=== PATIENT | female | born 1995 | race Hispanic/Latino ===

== ENCOUNTER 2019-05-02 14:50 | Emergency (ER) | payer OTHER | END 2019-05-02 15:59 | disposition home or self-care (01) | LOC: EDH 14:50 | DX: H10.9 Unspecified conjunctivitis (principal) ==

== ENCOUNTER 2019-12-09 13:09 | Inpatient (IN) | payer OTHER ==
[~2019-12-09] VITALS: Ht 175.3 cm; Wt 133.8 kg
[2019-12-09 14:30] LABS: APPEARANCE,URINE Clear (CLEAR); BILIRUBIN,URINE Negative (NEGATIVE); COLOR,URINE Yellow (YELLOW); GLUCOSE, URINE (UA) Negative (NEGATIVE); KETONES,URINE Negative (NEGATIVE); LEUKOCYTE ESTERASE ,URINE Negative (NEGATIVE); NITRATE,URINE Negative (NEGATIVE); OCCULT BLOOD,URINE Trace (NEGATIVE); PROTEIN,URINE Negative (NEGATIVE)
[2019-12-09 14:48] LABS: BASOPHILS % (AUTO) 0.2 % (0.0-5.0); EOSINOPHILS % (AUTO) 1.9 % (0.0-8.0); HEMATOCRIT 39.8 % (36-48); LYMPHOCYTES % (AUTO) 31.4 % (21.0-51.0); MEAN CORPUSCULAR HEMOGLOBIN 27.7 pg (27.0-33.0); MEAN CORPUSCULAR HGB CONC 31.9 g/dL (32.0-36.0); MEAN CORPUSCULAR VOLUME 86.9 fL (79-99); MONOCYTES % (AUTO) 5.5 % (3.0-13.0); NEUTROPHILS % (AUTO) 60.7 % (40.0-77.0); PLATELET COUNT (AUTO) 313 K/uL (130-400); RED BLOOD CELL COUNT(AUTO) 4.58 MIL/uL (4.00-5.50); RED CELL DISTRIBUTION WIDTH 13.4 % (11.0-15.5); WHITE BLOOD COUNT (AUTO) 9.1 K/uL (4.8-10.8)
[2019-12-09 14:53] LABS: RBC,URINE 0-1 /HPF (0-1)
[2019-12-09 14:54] LABS: BACTERIA,URINE Few /HPF (None Seen); WBC,URINE 0-1 /HPF (0-1)
[2019-12-09] MEDS ORDERED: SODIUM CHLORIDE 0.9% 1000ML 1,000 ML IV ONE (14:58)
[2019-12-09] MEDS ORDERED: ONDANSETRON HCL 4 MG/2 ML VIAL ONE (14:58)
[2019-12-09] MEDS ORDERED: MORPHINE SULFATE 4 MG/1ML SYG ONE (14:58)
[2019-12-09 15:04] LABS: CREATININE 0.8 mg/dL (0.5-1.5); POTASSIUM 3.7 mmol/L (3.5-5.1)
[2019-12-09 15:16] LABS: ALBUMIN 3.3 g/dL (3.5-5.0); BILIRUBIN,TOTAL 0.2 mg/dL (0.2-1.0); TOTAL PROTEIN, SERUM 8.4 g/dL (6.0-8.3)
[2019-12-09] MEDS ORDERED: KETOROLAC TROMETHAMINE 15MG/ML ONE (16:01)
--- NOTE | 2019-12-09 18:20 | NUR ---
ANDRE LARSON CALLED AND VOICE MAIL LEFT TO INFORM THAT PATIENT HAVING TEMP. WILL WAIT FOR CALLBACK. PATIENT GIVEN COLD PACKS AND COOL WASH CLOTHES USED TO DAB ON BODY. ASSISTED PATIENT IN DABBING BILATERAL UPPER/LOWER EXTREMITIES. ADVISED PATIENT TO REMAIN UNCOVERED AND TO DRINK PLENTY OF WATER. PATIENT VOICED UNDERSTANDING.
[2019-12-09 18:23] VITALS: BP 133/90
[2019-12-09] MEDS: LACTATED RINGERS 1000ML 1,000 ML IV SCH (18:58)
[2019-12-09 19:51] VITALS: BP 100/40
[2019-12-09] MEDS: PROMETHAZINE HCL 25 MG/ML 1ML AMPULE IM PRN (21:29)
[2019-12-09] MEDS: MEPERIDINE-PF 25 MG/ML SYG IV PRN (21:29)
[2019-12-10] VITALS (21 sets, daily range): BP systolic 94–145; BP diastolic 60–93
[2019-12-10] MEDS: PROMETHAZINE HCL 25 MG/ML 1ML AMPULE IM PRN ×3 (01:29→12:50)
[2019-12-10] MEDS: MEPERIDINE-PF 25 MG/ML SYG IV PRN (01:29)
[2019-12-10] MEDS: LACTATED RINGERS 1000ML 1,000 ML IV SCH ×3 (02:39→19:05)
--- NOTE | 2019-12-10 05:00 | NUR ---
Dr Gillespie called, clarifying order for Demerol 15mg q 2; changed dosage to Demerol 50mg IVP q 2 hours prn pain. Jose M Cruz RN notified of order clarification.
[2019-12-10] MEDS ORDERED: MEPERIDINE-PF 50 MG/ML SYG IVP PRN (05:15)
[2019-12-10 06:31] LABS: HEMATOCRIT 37.3 % (36-48); MEAN CORPUSCULAR HEMOGLOBIN 28.2 pg (27.0-33.0); MEAN CORPUSCULAR HGB CONC 32.2 g/dL (32.0-36.0); MEAN CORPUSCULAR VOLUME 87.8 fL (79-99); PLATELET COUNT (AUTO) 282 K/uL (130-400); RED BLOOD CELL COUNT(AUTO) 4.25 MIL/uL (4.00-5.50); RED CELL DISTRIBUTION WIDTH 13.6 % (11.0-15.5); WHITE BLOOD COUNT (AUTO) 9.6 K/uL (4.8-10.8)
[2019-12-10 06:33] LABS: CREATININE 0.8 mg/dL (0.5-1.5); POTASSIUM 3.5 mmol/L (3.5-5.1)
--- NOTE | 2019-12-10 07:35 | NUR ---
PATIENT ASSESSED AND WAS MADE AWARE THAT DR. PAN WOULD BE NOTIFIED OF HIS PATIENT BEING ADMITTED TO HOSPITAL. PATIENT HAS STABLE VITAL SIGNS AND HAS REMAINED AFEBRILE.
[2019-12-10] MEDS: MEPERIDINE-PF 50 MG/ML SYG IM PRN ×2 (08:29→12:53)
--- NOTE | 2019-12-10 12:30 | NUR ---
C/O HAVING PAIN AND WAS MEDICATED WITH DEMEROL 50 AND PHENERGAN 25MGS IM. PATIENT TOLERATED INJECTION WELL.
--- NOTE | 2019-12-10 16:45 | NUR ---
DR. PAN ROUNDED AND ORDER GIVEN TO OBTAIN CONSENT FOR EXPLORATORY LAPAROTOMY, EXCISION OF LEFT OVARIAN MASS AND INDICATED PROCEDURES. CONSENT OBTAINED AND OR WAS CALLED AND INDICATED PATIENT COULD GO TO OR FOR SX IN [address] CONSENT OBTAINED AND DR. PAN INFORMED PATIENT OF PROCEDURE TO BE DONE.
[2019-12-10] MEDS ORDERED: LIDOCAINE PF 2% 5ML ABBOJECT ONE (17:08)
[2019-12-10] MEDS ORDERED: SUCCINYLCHOLINE CHLORIDE 20 MG/ML 10 ML VIAL ONE (17:08)
[2019-12-10] MEDS ORDERED: FENTANYL CITRATE PF 50 MCG/1 ML 2ML VIAL ONE (17:09)
[2019-12-10] MEDS ORDERED: PROPOFOL 10 MG/ML 20ML VIAL IV ONE (17:09)
[2019-12-10] MEDS ORDERED: ROCURONIUM 10MG/1ML SYR 10 MG/ML ML ONE (17:09)
[2019-12-10] MEDS ORDERED: CEFAZOLIN SODIUM 1 GM VIAL ONE (17:27)
--- NOTE | 2019-12-10 17:30 | NUR ---
PATIENT WAS TAKEN VIA BED TO OR IN STABLE CONDITION.
[2019-12-10] MEDS ORDERED: MIDAZOLAM HCL 1 MG/ML 2ML VIAL ONE (17:33)
[2019-12-10] MEDS ORDERED: MEPERIDINE-PF 50 MG/ML SYG IM PRN (17:45)
[2019-12-10] MEDS ORDERED: MEPERIDINE-PF 25 MG/ML SYG ONE (18:16)
[2019-12-10] MEDS ORDERED: FENTANYL CITRATE PF 50 MCG/1 ML 5ML AMP IV ONE (18:17)
[2019-12-10] MEDS ORDERED: ONDANSETRON HCL 4 MG/2 ML VIAL ONE (18:28)
[2019-12-10] MEDS ORDERED: NEOSTIGMINE 5MG/5ML SYR IV ONE (18:29)
[2019-12-10] MEDS ORDERED: KETOROLAC TROMETHAMINE 30MG/ML ONE (18:29)
[2019-12-10] MEDS ORDERED: GLYCOPYRROLATE 1 MG/5 ML SYRINGE ONE (18:29)
--- NOTE | 2019-12-10 19:20 | NUR ---
BEDSIDE REPORT GIVEN TO Ricardo MORRISSEY RN AND PATIENT CARE TRANSFERED AT THIS TIME.
[2019-12-10] MEDS ORDERED: MEPERIDINE-PF 25 MG/ML SYG IM PRN (20:15)
[2019-12-11] MEDS: LACTATED RINGERS 1000ML 1,000 ML IV SCH ×3 (03:00→19:00)
[2019-12-11 03:42] VITALS: BP 117/53
[2019-12-11] MEDS: PROMETHAZINE HCL 25 MG/ML 1ML AMPULE IM PRN (03:51)
[2019-12-11] MEDS ORDERED: DOCUSATE SODIUM 100 MG CAP PO PRN (06:00)
[2019-12-11] MEDS ORDERED: BISACODYL 10 MG SUPP.RECT RC PRN (06:00)
[2019-12-11] MEDS ORDERED: ACETAMINOPHEN-CODEINE 300/30MG TAB PO PRN (06:00)
[2019-12-11] MEDS ORDERED: SIMETHICONE 80 MG TAB.CHEW PO PRN (06:00)
[2019-12-11] MEDS ORDERED: IBUPROFEN 600 MG TABLET PO PRN (06:00)
--- NOTE | 2019-12-11 06:55 | NUR ---
TIMOTHY GRAHAM DC'Ricardo, PT INST TO CALL FOR ASSIST BEFORE GETTING OUT OF BED; VERBALIZED UNDERSTANDING. Addendum: 12/11/19 at 0708 by DEBORAH MORRISSEY RN RN Amended: Links added.
[2019-12-11] MEDS: DEXTROSE 5%-LACTATED RINGERS 1,000 ML IV SCH ×2 (07:15→23:15)
[2019-12-11 07:23] VITALS: BP 113/67
--- NOTE | 2019-12-11 07:30 | NUR ---
ASSISTED PATIENT TO BATHROOM AND PATIENT COULD NOT VOID. DENIES ANY DIZZINESS DURING AMBULATION. PATIENT ENCOURAGED TO SIT IN CHAIR. C/O NAUSEA. WILL OBTAIN ORDER FROM DR. PAN FOR JOSE OWEN.
[2019-12-11 07:38] LABS: HEMATOCRIT 37.1 % (36-48); MEAN CORPUSCULAR HEMOGLOBIN 27.9 pg (27.0-33.0); MEAN CORPUSCULAR HGB CONC 31.5 g/dL (32.0-36.0); MEAN CORPUSCULAR VOLUME 88.3 fL (79-99); PLATELET COUNT (AUTO) 283 K/uL (130-400); RED CELL DISTRIBUTION WIDTH 13.6 % (11.0-15.5); WHITE BLOOD COUNT (AUTO) 11.7 K/uL (4.8-10.8)
[2019-12-11] MEDS ORDERED: ONDANSETRON HCL 4 MG/2 ML VIAL IVP PRN (08:30)
--- NOTE | 2019-12-11 08:45 | NUR ---
SPOKE TO DR. PAN AND INFORMED HIM OF PATIENT C/O OF NAUSEA AND ADDED PROTONIX IV TO GIVE ALONG WITH ZOFRAN.
[2019-12-11] MEDS: ACETAMINOPHEN-CODEINE ELIXIR 5 ML UDCUP PO PRN ×2 (09:26→16:10)
[2019-12-11] MEDS: IBUPROFEN 100 MG/5 ML SUSP UDCUP PO PRN ×2 (09:27→18:23)
[2019-12-11] MEDS: SIMETHICONE 80 MG TAB.CHEW PO PRN ×3 (09:49→21:22)
[2019-12-11] MEDS: DOCUSATE NA 100MG/10ML UDCUP PO PRN ×2 (09:49→21:22)
[2019-12-11] MEDS: PANTOPRAZOLE 40 MG/VIAL IVP SCH (09:49)
--- NOTE | 2019-12-11 10:40 | NUR ---
DR. PAN ROUNDED AND REINFORCED NEED FOR PATIENT TO AMBULATE IN HALLWAY. PATIENT VERBALIZED UNDERSTANDING. INCISION IS OPEN TO AIR WITH STERI STRIPS AND NO REDNESS OR DRAINAGE NOTED.
--- NOTE | 2019-12-11 11:00 | NUR ---
PATIENT UP AND AMBULATED IN HALLWAY WITH SPOUSE AND TOLERATED ACTIVITY WELL. PATIENT STABLE.
[2019-12-11 12:00] VITALS: BP 108/56
--- NOTE | 2019-12-11 13:00 | NUR ---
PATIENT STATES USING INCENTIVE SPIROMETRY AND DOING BETTER. ENCOURAGED PATIENT TO KEEP USING IT EVERY 2 HOURS WHILE AWAKE X 10 TIMES.
[2019-12-11 16:00] VITALS: BP 110/55
--- NOTE | 2019-12-11 16:15 | NUR ---
PATIENT WAS GIVEN ABDOMINAL BINDER FOR SUPPORT WHEN AMBULATING. BACK IN BED AND STATES WILL WALK AGAIN WHEN SPOUSE RETURNS.
--- NOTE | 2019-12-11 19:00 | NUR ---
PT. AMBULATED IN HALLWAY FOR 30 MINUTES, WELL TOLERATED.
[2019-12-11 20:17] VITALS: BP 111/59
[2019-12-11 23:10] VITALS: BP 111/60
[2019-12-12] MEDS: LACTATED RINGERS 1000ML 1,000 ML IV SCH ×2 (03:00→03:36)
[2019-12-12] MEDS: DEXTROSE 5%-LACTATED RINGERS 1,000 ML IV SCH (03:34)
[2019-12-12 03:44] VITALS: BP 108/66
[2019-12-12 07:40] VITALS: BP 92/43
[2019-12-12] MEDS: PANTOPRAZOLE 40 MG/VIAL IVP SCH (09:11)
[2019-12-12 11:45] VITALS: BP 93/57
--- NOTE | 2019-12-12 11:45 | NUR ---
DR. MAGDA PAN CALLED AND WAS UPDATED ON PATIENT STATUS AND PATIENT BEING VERY STABLE. ORDER RECEIVED FOR DISCHARGE AND SCRIPT IN CHART FOR HOME PAIN MANAGEMENT.
--- NOTE | 2019-12-12 13:30 | NUR ---
PATIENT WAS GIVEN DISCHARGE INSTRUCTIONS AND SCRIPT FOR PAIN MANAGEMENT GIVEN. DENIES PAIN AND VERBALIZED UNDERSTANDING CARE OF INCISION AND PAIN MANAGEMENT ONCE DISCHARGED.
--- NOTE | 2019-12-12 14:15 | NUR ---
PATIENT WAS TAKEN VIA W/C TO FAMILY VEHICLE AND WAS DISCHARGED TO HER IN STABLE CONDITION.
--- NOTE | 2019-12-13 09:30 | NUR ---
CHERRIE NOTE PATIENT DISCHARGED HOME, NO NEEDS VOICED BY NURSE. Addendum: 12/13/19 at 0931 by MARIO ROSEN RN CM Amended: Links added.
== END 2019-12-12 14:15 | disposition home or self-care (01) | DRG 743 ==
LOC: EDH 13:09 → OBSVTOIN 17:07 → EDHIP 17:07 → WSH 18:20
PROVIDERS: ADMIT Obstetrics & Gynecology; ATTEND Obstetrics & Gynecology
PROC: 0UB10ZZ Excision of Left Ovary, Open Approach (ICD-10-PCS; principal; 2019-12-10 17:32)
PROC: 0UB00ZZ Excision of Right Ovary, Open Approach (ICD-10-PCS; 2019-12-10 17:32)
DX: N83.202 Unspecified ovarian cyst, left side (principal); N83.201 Unspecified ovarian cyst, right side
CPT/HCPCS: 36415; 76856; 80048; 80053; 81001; 83690; 84702; 85025; 85027; A4344; C9113; G0378; J0330; J0690; J1885; J2001; J2175; J2250; J2270; J2405; J2550; J2704; J2710; J3010; J3490; J7030; J7120